=== PATIENT | female | born 1960 | race Caucasian/White ===

== ENCOUNTER 2021-04-02 13:06 | Inpatient (IN) | payer MEDICAID ==
[~2021-04-02] VITALS: Ht 170.2 cm; Wt 102.0 kg
[2021-04-02] VITALS (11 sets, daily range): BP systolic 150–185; BP diastolic 77–108
[2021-04-02] MEDS ORDERED: pantoprazole 40 MG vial IV ONE (13:35)
[2021-04-02] MEDS ORDERED: morphine 4 MG/ML inj SYRINge IV ONE ×2 (13:35→16:10)
[2021-04-02] MEDS ORDERED: normal saline 1000ml 1,000 ML IV ONE (13:40)
[2021-04-02 14:03] LABS: URINE HCG NEGATIVE (NEG)
[2021-04-02 14:06] LABS: BASOPHILS % (AUTO) 0.6 % (0-1); EOSINOPHILS % (AUTO) 0.6 % (0-6); HEMATOCRIT 23.2 % (35.0-45.0); HEMOGLOBIN 7.1 g/dl (12.0-16.0); LYMPHOCYTES # (AUTO) 0.7 X10'3 (1.1-4.8); LYMPHOCYTES % (AUTO) 10.9 % (21-51); MEAN CORPUSCULAR HEMOGLOBIN 20.7 PG (27.0-31.0); MEAN CORPUSCULAR HGB CONC 30.8 g/dL (33.0-36.5); MEAN CORPUSCULAR VOLUME 67.3 FL (78-98); MEAN PLATELET VOLUME 8.4 FL (7.4-10.4); MONOCYTES # (AUTO) 0.3 X10'3 (0-0.9); MONOCYTES % (AUTO) 4.2 % (2-12); NEUTROPHILS # (AUTO) 5.4 X10'3 (1.8-7.7); NEUTROPHILS % (AUTO) 83.7 % (42-75); PLATELET COUNT 130 X10'3 (140-440); RED BLOOD COUNT 3.45 X10'6 (4.20-5.60); RED CELL DISTRIBUTION WIDTH 22.1 % (11.5-14.5); WHITE BLOOD COUNT 6.4 X10'3 (4.5-11.0)
[2021-04-02 14:09] LABS: CLARITY,URINE SLIGHTLY CLOUDY (Clear); COLOR,URINE YELLOW (Yellow); GLUCOSE, URINE NEGATIVE (Neg); KETONES,URINE NEGATIVE (Neg); LEUKOCYTE ESTERASE ,URINE TRACE (Neg); NITRITES, URINE NEGATIVE (Neg); OCCULT BLOOD,URINE NEGATIVE (Neg); PH,URINE 6.5 (4.8-8.0); PROTEIN,URINE NEGATIVE (Neg); UA COLLECTION TYPE CLN CATCH MIDSTREAM; UROBILINOGEN,URINE 0.2 E.U/dL (0.2-1.0)
[2021-04-02 14:18] LABS: ALANINE AMINOTRANSFERASE 25 U/L (12-78); ALBUMIN 3.2 G/DL (3.4-5.0); ALBUMIN/GLOBULIN RATIO 0.9 (1.1-1.5); ALKALINE PHOSPHATASE 94 IU/L (46-116); AMYLASE 29 U/L (25-115); ANION GAP 15 (8-16); ASPARTATE AMINO TRANSFERASE 25 U/L (10-37); BILIRUBIN,TOTAL 1.4 MG/DL (0.1-1.0); BLOOD UREA NITROGEN 18 MG/DL (7-18); BUN/CREATININE RATIO 20.9 (6.6-38.0); CALCIUM 7.8 MG/DL (8.5-10.1); CHLORIDE 104 MMOL/L (99-107); CREATININE 0.86 MG/DL (0.40-0.90); GLUCOSE 141 MG/DL (70-104); LIPASE 54 U/L (73-393); SODIUM 142 MMOL/L (135-145); TOTAL CARBON DIOXIDE 23.3 MMOL/L (24-32); TOTAL PROTEIN 6.6 G/DL (6.4-8.2); eGFR 68 ML/MIN
[2021-04-02 14:19] LABS: PARTIAL THROMBOPLASTIN TIME 21 SECONDS (22-32)
--- NOTE | 2021-04-02 14:21 | NUR ---
Provider (Judy) notified of K 3.0
[2021-04-02 14:24] LABS: BACTERIA,URINE NONE SEEN /HPF (Neg); MUCUS STRANDS FEW /LPF (Neg); RBC,URINE 0-2 /HPF (0-2); SQUAMOUS EPITHELIAL CELL,UR MODERATE /LPF (FEW); WBC,URINE 0-4 /HPF (0-4)
[2021-04-02] MEDS ORDERED: potassium Cl 10 mEq/100mL bag IV ONE (14:35)
[2021-04-02] MEDS ORDERED: iohexol 300mg/ml 100ml inj. ONE (14:44)
[2021-04-02 14:47] LABS: ANISOCYTOSIS 3+; HYPOCHROMASIA 1+; MICROCYTOSIS 2+; PLATELET ESTIMATE DECREASED; POIKILOCYTOSIS FEW
[2021-04-02] MEDS ORDERED: ondansetron/PF 4mg/2ml inj IV ONE (16:10)
[2021-04-02] MEDS ORDERED: octreotide inj. 500 MCG in normal saline 100ml IV soln 100 ML IV SCH (16:45)
--- NOTE | 2021-04-02 16:49 | NUR ---
AWAITING FOR CALL FROM BLOOD BANK REGARDING PRBC.
[2021-04-02] MEDS: pantoprazole 40MG/NS 100ML BAG 100 ML IV SCH (18:15)
[2021-04-02] MEDS ORDERED: magnesium Cl slow-release 64mg tablet PO PRN (18:25)
[2021-04-02] MEDS ORDERED: HYDROcodone/acetaminophen 5mg/325mg tablet PO PRN (18:25)
[2021-04-02] MEDS ORDERED: acetaminophen 325mg tablet PO PRN ×2 (18:25)
[2021-04-02] MEDS ORDERED: haloperidol lactate 5mg/ml inj IM PRN (18:25)
[2021-04-02] MEDS ORDERED: potassium Cl 20 mEq SR tablet PO PRN ×2 (18:25)
[2021-04-02] MEDS ORDERED: mag hydrox/Alum hydrox/simeth 30ml oral suspension PO PRN (18:25)
[2021-04-02] MEDS ORDERED: haloperidol 5mg tablet PO PRN (18:25)
[2021-04-02] MEDS ORDERED: magnesium 2GM in 50ml NS 50 ML IV PRN (18:25)
[2021-04-02] MEDS ORDERED: magnesium hydroxide 30ml (MOM) UD suspension PO PRN (18:25)
[2021-04-02] MEDS ORDERED: magnesium 4gm in 100ml NS 100 ML IV PRN (18:25)
[2021-04-02] MEDS ORDERED: morphine 2 MG/ML inj. syringe IV PRN (18:25)
[2021-04-02] MEDS ORDERED: dextrose 50%-water 50ml dispensing syringe IV PRN (18:25)
[2021-04-02] MEDS ORDERED: thiamine 100mg/ml 2ml inj. IV ONE (18:25)
[2021-04-02] MEDS ORDERED: diphenhydrAMINE 25mg capsule PO PRN (18:25)
[2021-04-02] MEDS ORDERED: potassium Cl 40MEQ/1/2NS 520ml 520 ML IV PRN (18:25)
[2021-04-02] MEDS: dextrose 5%-normal saline 1,000 ML IV SCH ×2 (18:25→22:35)
[2021-04-02] MEDS ORDERED: APIX5TAB3 PO (19:35)
[2021-04-02] MEDS: docusate sod 100mg capsule PO SCH (19:43)
[2021-04-02] MEDS: thiamine 100mg tablet PO SCH ×2 (19:43→19:49)
[2021-04-02] MEDS: K and/or MAG REPLACEMENT MC SCH (19:43)
[2021-04-02 20:42] LABS: HEMOGLOBIN A1C < 3.6 % (4.5-6.2)
[2021-04-02] MEDS: ondansetron/PF 4mg/2ml inj IV PRN (20:53)
[2021-04-02] MEDS: morphine 2 MG/ML inj. syringe IV PRN (22:38)
[2021-04-03 00:15] LABS: HEMATOCRIT 27.4 % (35.0-45.0); HEMOGLOBIN 8.7 g/dl (12.0-16.0); MEAN CORPUSCULAR HEMOGLOBIN 22.7 PG (27.0-31.0); MEAN CORPUSCULAR HGB CONC 31.7 g/dL (33.0-36.5); MEAN CORPUSCULAR VOLUME 71.7 FL (78-98); MEAN PLATELET VOLUME 8.3 FL (7.4-10.4); PLATELET COUNT 98 X10'3 (140-440); RED BLOOD COUNT 3.82 X10'6 (4.20-5.60); RED CELL DISTRIBUTION WIDTH 24.6 % (11.5-14.5); WHITE BLOOD COUNT 5.7 X10'3 (4.5-11.0)
[2021-04-03] MEDS: pantoprazole 40MG/NS 100ML BAG 100 ML IV SCH ×5 (00:28→17:26)
[2021-04-03] MEDS: potassium Cl 40MEQ/1/2NS 520ml 520 ML IV PRN ×2 (00:37→05:49)
[2021-04-03] MEDS: LORazepam 2 mg/ml vial IV PRN ×6 (00:42→21:30)
--- NOTE | 2021-04-03 00:51 | NUR ---
pt c/o paliptation. hr 85. noticd pt has tremors in hand and pt states is having visual halluciantions. pt states drinks 1/2 a fifth daily and last drink yesterday. 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 medicated pt with ativan and will monitor ciwa score .
[2021-04-03] MEDS: morphine 2 MG/ML inj. syringe IV PRN ×3 (03:08→22:05)
[2021-04-03] MEDS: dextrose 5%-normal saline 1,000 ML IV SCH ×4 (04:25→23:16)
--- NOTE | 2021-04-03 06:33 | NUR ---
ASSUMED CARE. PT SHOWS NO S/S OF ACUTE DISTRESS. PT RESTING ON 3 LTR O2. BED LOCKED AND LOW. CALL LIGHT IN REACH.
[2021-04-03] MEDS: K and/or MAG REPLACEMENT MC SCH ×2 (08:00→20:00)
--- NOTE | 2021-04-03 08:04 | NUR ---
SPOKE W/ DR. BOOTHE REGARDING PO MED INTAKE. STATED EGD WILL BE BE PERFORMED LATE MORNING AND IS OKAY FOR ALL PO MEDS TO BE ADMINISTERED.
[2021-04-03] MEDS: ondansetron/PF 4mg/2ml inj IV PRN ×2 (08:33→17:17)
[2021-04-03] MEDS: multivitamins, therapeutics tablet PO SCH (08:34)
[2021-04-03] MEDS: thiamine 100mg tablet PO SCH (08:34)
[2021-04-03] MEDS: folic acid 1mg tablet PO SCH (08:34)
[2021-04-03] MEDS: docusate sod 100mg capsule PO SCH ×2 (08:34→20:00)
[2021-04-03] MEDS ORDERED: hydrALAZINE 20mg/ml inj. IV PRN (09:40)
[2021-04-03 09:41] LABS: BASOPHILS % (AUTO) 0.4 % (0-1); EOSINOPHILS # (AUTO) 0.2 X10'3 (0-0.9); EOSINOPHILS % (AUTO) 3.9 % (0-6); HEMATOCRIT 26.1 % (35.0-45.0); HEMOGLOBIN 8.2 g/dl (12.0-16.0); LYMPHOCYTES % (AUTO) 21.5 % (21-51); MEAN CORPUSCULAR HEMOGLOBIN 22.6 PG (27.0-31.0); MEAN CORPUSCULAR HGB CONC 31.3 g/dL (33.0-36.5); MEAN CORPUSCULAR VOLUME 72.2 FL (78-98); MEAN PLATELET VOLUME 8.3 FL (7.4-10.4); MONOCYTES # (AUTO) 0.2 X10'3 (0-0.9); NEUTROPHILS # (AUTO) 3.2 X10'3 (1.8-7.7); NEUTROPHILS % (AUTO) 70.2 % (42-75); PLATELET COUNT 86 X10'3 (140-440); RED BLOOD COUNT 3.62 X10'6 (4.20-5.60); WHITE BLOOD COUNT 4.6 X10'3 (4.5-11.0)
[2021-04-03 09:50] LABS: ALANINE AMINOTRANSFERASE 28 U/L (12-78); ALBUMIN 2.8 G/DL (3.4-5.0); ALKALINE PHOSPHATASE 78 IU/L (46-116); AMYLASE 23 U/L (25-115); ANION GAP 6 (8-16); ASPARTATE AMINO TRANSFERASE 47 U/L (10-37); BLOOD UREA NITROGEN 13 MG/DL (7-18); BUN/CREATININE RATIO 18.1 (6.6-38.0); CALCIUM 7.8 MG/DL (8.5-10.1); CHLORIDE 112 MMOL/L (99-107); CHOL/HDL RATIO 3.2 (0.00-4.99); CHOLESTEROL 142 MG/DL (0-200); CREATININE 0.72 MG/DL (0.40-0.90); GLUCOSE 139 MG/DL (70-104); HDL CHOLESTEROL 45 MG/DL (35-60); LDL CHOLESTEROL 77 MG/DL (50-100); MAGNESIUM 1.6 MG/DL (1.5-2.4); PHOSPHORUS 2.3 MG/DL (2.3-4.5); POTASSIUM 4.2 MMOL/L (3.5-5.1); SODIUM 142 MMOL/L (135-145); TOTAL CARBON DIOXIDE 24.3 MMOL/L (24-32); TOTAL PROTEIN 5.7 G/DL (6.4-8.2); TRIGLYCERIDES 129 MG/DL (20-135); eGFR 83 ML/MIN
[2021-04-03 10:29] LABS: PLATELET ESTIMATE DECREASED
[2021-04-03 10:30] LABS: ANISOCYTOSIS 3+; ELLIPTOCYTES 1+; HYPOCHROMASIA 1+; MICROCYTOSIS 1+; POLYCHROMASIA 1+; TEAR DROP CELLS FEW
[2021-04-03] MEDS: pantoprazole 40 MG vial IV SCH (10:40)
[2021-04-03] MEDS: octreotide inj. 500 MCG in normal saline 100ml IV soln 97.5 ML IV SCH (11:32)
[2021-04-03 13:05] LABS: HEMATOCRIT 25.2 % (35.0-45.0); HEMOGLOBIN 7.8 g/dl (12.0-16.0); MEAN CORPUSCULAR HEMOGLOBIN 22.7 PG (27.0-31.0); MEAN CORPUSCULAR VOLUME 73.1 FL (78-98); MEAN PLATELET VOLUME 8.5 FL (7.4-10.4); PLATELET COUNT 84 X10'3 (140-440); RED BLOOD COUNT 3.45 X10'6 (4.20-5.60); WHITE BLOOD COUNT 4.9 X10'3 (4.5-11.0)
[2021-04-03 22:00] VITALS: BP 154/82
[2021-04-04] VITALS (16 sets, daily range): BP systolic 91–158; BP diastolic 35–95
[2021-04-04] MEDS: pantoprazole 40MG/NS 100ML BAG 100 ML IV SCH ×4 (00:05→12:00)
[2021-04-04] MEDS: LORazepam 2 mg/ml vial IV PRN ×6 (00:24→16:58)
[2021-04-04] MEDS: ondansetron/PF 4mg/2ml inj IV PRN ×2 (01:18→08:34)
[2021-04-04] MEDS: morphine 2 MG/ML inj. syringe IV PRN ×2 (01:49→08:17)
--- NOTE | 2021-04-04 06:26 | NUR ---
Problems reprioritized. Patient report given, questions answered & plan of care reviewed with MAT Huber.
[2021-04-04 06:28] LABS: BASOPHILS % (AUTO) 0.7 % (0-1); EOSINOPHILS # (AUTO) 0.2 X10'3 (0-0.9); EOSINOPHILS % (AUTO) 3.7 % (0-6); HEMOGLOBIN 7.5 g/dl (12.0-16.0); LYMPHOCYTES # (AUTO) 1.2 X10'3 (1.1-4.8); LYMPHOCYTES % (AUTO) 24.1 % (21-51); MEAN CORPUSCULAR HEMOGLOBIN 23.2 PG (27.0-31.0); MEAN CORPUSCULAR HGB CONC 31.5 g/dL (33.0-36.5); MEAN CORPUSCULAR VOLUME 73.7 FL (78-98); MEAN PLATELET VOLUME 8.2 FL (7.4-10.4); MONOCYTES # (AUTO) 0.2 X10'3 (0-0.9); MONOCYTES % (AUTO) 4.3 % (2-12); NEUTROPHILS # (AUTO) 3.4 X10'3 (1.8-7.7); NEUTROPHILS % (AUTO) 67.2 % (42-75); PLATELET COUNT 94 X10'3 (140-440); RED BLOOD COUNT 3.26 X10'6 (4.20-5.60); RED CELL DISTRIBUTION WIDTH 23.8 % (11.5-14.5)
[2021-04-04 06:50] LABS: ALANINE AMINOTRANSFERASE 59 U/L (12-78); ALBUMIN 2.5 G/DL (3.4-5.0); ALBUMIN/GLOBULIN RATIO 0.9 (1.1-1.5); ALKALINE PHOSPHATASE 73 IU/L (46-116); AMYLASE 28 U/L (25-115); ANION GAP 7 (8-16); ASPARTATE AMINO TRANSFERASE 112 U/L (10-37); BILIRUBIN,TOTAL 0.6 MG/DL (0.1-1.0); BLOOD UREA NITROGEN 8 MG/DL (7-18); BUN/CREATININE RATIO 10.8 (6.6-38.0); CALCIUM 7.7 MG/DL (8.5-10.1); CHLORIDE 111 MMOL/L (99-107); CREATININE 0.74 MG/DL (0.40-0.90); GLUCOSE 135 MG/DL (70-104); MAGNESIUM 1.6 MG/DL (1.5-2.4); PHOSPHORUS 2.6 MG/DL (2.3-4.5); POTASSIUM 3.6 MMOL/L (3.5-5.1); SODIUM 142 MMOL/L (135-145); TOTAL CARBON DIOXIDE 24.5 MMOL/L (24-32); TOTAL PROTEIN 5.4 G/DL (6.4-8.2); eGFR 81 ML/MIN
--- NOTE | 2021-04-04 07:48 | NUR ---
Patient in room PCU 3028. I have received report from DAYTON RIVERO and had the opportunity to ask questions and assume patient care.
[2021-04-04] MEDS: K and/or MAG REPLACEMENT MC SCH ×2 (08:00→22:00)
[2021-04-04] MEDS: docusate sod 100mg capsule PO SCH ×2 (08:00→20:49)
[2021-04-04] MEDS: pantoprazole 40 MG vial IV SCH (08:21)
[2021-04-04] MEDS: multivitamins, therapeutics tablet PO SCH (08:22)
[2021-04-04] MEDS: thiamine 100mg tablet PO SCH (08:22)
[2021-04-04] MEDS: folic acid 1mg tablet PO SCH (08:34)
--- NOTE | 2021-04-04 09:29 | NUR ---
Page to Glendy PAGER ID: [phone] MESSAGE: Pt Cynthia Morillo [id number] is having no relief from Zofran. May we try Compazine? Pls advise, Lindsey MCKEON [phone]
[2021-04-04] MEDS: octreotide inj. 500 MCG in normal saline 100ml IV soln 97.5 ML IV SCH (09:50)
[2021-04-04] MEDS ORDERED: pneumococcal 23-VAL P-sac vacc 25 mcg/0.5ml vial IMVAC ONE (10:00)
[2021-04-04] MEDS ORDERED: FLU VACC QS2021-22(6MOS UP)/PF 60 MCG/0.5 ML SYRINGE IM ONE (10:00)
[2021-04-04 10:59] LABS: MEAN CORPUSCULAR HEMOGLOBIN 23.2 PG (27.0-31.0); MEAN CORPUSCULAR HGB CONC 31.1 g/dL (33.0-36.5); MEAN CORPUSCULAR VOLUME 74.7 FL (78-98); MEAN PLATELET VOLUME 8.3 FL (7.4-10.4); PLATELET COUNT 112 X10'3 (140-440); RED BLOOD COUNT 2.74 X10'6 (4.20-5.60); RED CELL DISTRIBUTION WIDTH 24.5 % (11.5-14.5); WHITE BLOOD COUNT 5.8 X10'3 (4.5-11.0)
[2021-04-04 11:07] LABS: HEMATOCRIT 20.4 % (35.0-45.0); HEMOGLOBIN 6.4 g/dl (12.0-16.0)
--- NOTE | 2021-04-04 12:23 | NUR ---
Pt BP 92/44, pale, lethargic, bolusing 250cc per protocol, 1 unit PRBC in route
[2021-04-04] MEDS ORDERED: LIDOcaine Viscous 15ml cup ONE (13:00)
[2021-04-04] MEDS ORDERED: fentaNYL/PF 50MCG/1 ML 2ML syringe ONE ×3 (13:00→14:33)
[2021-04-04] MEDS ORDERED: MIDAZolam 1 MG/ML 5ML VIAL ONE (13:00)
[2021-04-04] MEDS ORDERED: epiNEPHrine 0.1mg/ml 10ml syringe ONE (14:15)
[2021-04-04] MEDS ORDERED: diphenhydrAMINE 50 mg/ml inj ONE (14:33)
[2021-04-04 15:25] LABS: OCCULT BLOOD STOOL POSITIVE (Neg)
--- NOTE | 2021-04-04 16:01 | NUR ---
page to gabe PAGER ID: [phone] MESSAGE: Pt Cynthia Morillo got her EGD and they cauterized d a duodenal ulcer. Can I start her on clears please for dinner? pls advise, Lindsey MCKEON [phone]
[2021-04-04 16:43] LABS: MEAN CORPUSCULAR HEMOGLOBIN 24.6 PG (27.0-31.0); MEAN CORPUSCULAR HGB CONC 31.5 g/dL (33.0-36.5); MEAN PLATELET VOLUME 7.6 FL (7.4-10.4); PLATELET COUNT 98 X10'3 (140-440); RED BLOOD COUNT 2.83 X10'6 (4.20-5.60); RED CELL DISTRIBUTION WIDTH 25.3 % (11.5-14.5); WHITE BLOOD COUNT 6.2 X10'3 (4.5-11.0)
[2021-04-04 16:52] LABS: HEMOGLOBIN 6.9 g/dl (12.0-16.0)
[2021-04-04] MEDS: proCHLORperazine 10 MG/2 ml inj IV PRN (17:01)
--- NOTE | 2021-04-04 17:27 | NUR ---
Orientee documentation: I have reviewed and agree with all interventions, assessments performed and documented by Cecile RIVERO.
--- NOTE | 2021-04-04 18:12 | NUR ---
Problems reprioritized. Patient report given, questions answered & plan of care reviewed with Yecenia RIVERO.
[2021-04-04] MEDS ORDERED: LORazepam 2 mg/ml vial IV PRN (18:25)
--- NOTE | 2021-04-04 20:00 | NUR ---
Pt request vaccines not to be at this time because she wants to sleep. She will revisit it before discharge
[2021-04-04] MEDS: LORazepam 1 MG tablet PO PRN (21:09)
[2021-04-04] MEDS: HYDROcodone/acetaminophen 10/325mg tab PO PRN (21:12)
--- NOTE | 2021-04-04 21:30 | NUR ---
Unable to draw lab for CBC; Dr Motta notified. Will draw with AM lab
[2021-04-05] VITALS (14 sets, daily range): BP systolic 108–165; BP diastolic 48–85
[2021-04-05] MEDS: HYDROcodone/acetaminophen 10/325mg tab PO PRN ×5 (01:15→20:43)
[2021-04-05] MEDS: LORazepam 1 MG tablet PO PRN ×9 (01:16→22:55)
[2021-04-05] MEDS: normal saline 1000ml 1,000 ML IV SCH ×4 (01:18→17:30)
--- NOTE | 2021-04-05 01:37 | NUR ---
hourly rounding in progress, fall precaution in progress, Call light and bedside commode placed within reach. Continue to monitor pt for withdraw.
--- NOTE | 2021-04-05 05:20 | NUR ---
Pt had a good night sleep;. IV fluid infusing well with no complication. Medicated for pain and anxiety as needed. Continue to monitor pt for active bleeding
[2021-04-05 05:58] LABS: BASOPHILS % (AUTO) 0.4 % (0-1); EOSINOPHILS # (AUTO) 0.1 X10'3 (0-0.9); LYMPHOCYTES # (AUTO) 1.1 X10'3 (1.1-4.8); LYMPHOCYTES % (AUTO) 22.2 % (21-51); MEAN CORPUSCULAR HEMOGLOBIN 24.9 PG (27.0-31.0); MEAN CORPUSCULAR HGB CONC 31.8 g/dL (33.0-36.5); MEAN CORPUSCULAR VOLUME 78.5 FL (78-98); MEAN PLATELET VOLUME 7.3 FL (7.4-10.4); MONOCYTES # (AUTO) 0.3 X10'3 (0-0.9); MONOCYTES % (AUTO) 5.2 % (2-12); NEUTROPHILS # (AUTO) 3.5 X10'3 (1.8-7.7); NEUTROPHILS % (AUTO) 69.2 % (42-75); PLATELET COUNT 97 X10'3 (140-440); RED BLOOD COUNT 2.42 X10'6 (4.20-5.60); RED CELL DISTRIBUTION WIDTH 24.6 % (11.5-14.5)
[2021-04-05 06:15] LABS: ALANINE AMINOTRANSFERASE 53 U/L (12-78); ALBUMIN 2.1 G/DL (3.4-5.0); ALBUMIN/GLOBULIN RATIO 0.9 (1.1-1.5); ALKALINE PHOSPHATASE 57 IU/L (46-116); AMYLASE 41 U/L (25-115); ANION GAP 7 (8-16); ASPARTATE AMINO TRANSFERASE 58 U/L (10-37); BILIRUBIN,TOTAL 0.5 MG/DL (0.1-1.0); BLOOD UREA NITROGEN 11 MG/DL (7-18); BUN/CREATININE RATIO 16.7 (6.6-38.0); CALCIUM 7.3 MG/DL (8.5-10.1); CHLORIDE 114 MMOL/L (99-107); CREATININE 0.66 MG/DL (0.40-0.90); GLUCOSE 93 MG/DL (70-104); MAGNESIUM 1.6 MG/DL (1.5-2.4); PHOSPHORUS 3.8 MG/DL (2.3-4.5); POTASSIUM 4.1 MMOL/L (3.5-5.1); SODIUM 147 MMOL/L (135-145); TOTAL CARBON DIOXIDE 25.6 MMOL/L (24-32); TOTAL PROTEIN 4.5 G/DL (6.4-8.2); eGFR > 90 ML/MIN
--- NOTE | 2021-04-05 06:32 | NUR ---
Patient labs came in critical HGB 6.0, HCT 19. Dr Webber notified. No transfusion ordered at this time. Will follow up with day hospitalist.
--- NOTE | 2021-04-05 07:11 | NUR ---
PAGER ID: [phone] MESSAGE: Cynthia Morillo [id number] Critical results HGB 6.0 Hct 19. Night nurse witnessed two episodes of bright red blood in stool. Would you like us to transfuse ? Please advise. Cecile RIVERO PCUext. [phone]
[2021-04-05 07:12] LABS: ANISOCYTOSIS 3+; ELLIPTOCYTES 1+; MICROCYTOSIS 1+; PLATELET ESTIMATE DECREASED; POLYCHROMASIA 1+
[2021-04-05] MEDS: thiamine 100mg tablet PO SCH (07:35)
[2021-04-05] MEDS: folic acid 1mg tablet PO SCH (07:35)
[2021-04-05] MEDS: multivitamins, therapeutics tablet PO SCH (07:35)
[2021-04-05] MEDS: morphine 2 MG/ML inj. syringe IV PRN ×4 (07:41→22:50)
[2021-04-05] MEDS: docusate sod 100mg capsule PO SCH ×2 (08:00→20:43)
[2021-04-05] MEDS: K and/or MAG REPLACEMENT MC SCH ×2 (08:00→20:00)
--- NOTE | 2021-04-05 08:18 | NUR ---
PAGER ID: [phone] MESSAGE: Cynthia Morillo [id number] PCU is reporting 3/10 chest pain ordered stat EKG, will take to ER doc to read and beginning transfusion now. Thank you, Cecile RIVERO PCU ext [phone] (165 character message out of a maximum of [phone])
--- NOTE | 2021-04-05 09:10 | NUR ---
PAGER ID: [phone] MESSAGE: Cynthia Morillo troponin came back 0.06. Thank you, Cecile RIVERO PCU ext [phone]
[2021-04-05] MEDS ORDERED: pneumococcal 23-VAL P-sac vacc 25 mcg/0.5ml vial IMVAC ONE (10:00)
[2021-04-05] MEDS ORDERED: FLU VACC QS2021-22(6MOS UP)/PF 60 MCG/0.5 ML SYRINGE IM ONE (10:00)
--- NOTE | 2021-04-05 10:48 | NUR ---
Met with patient in regards to alcohol use. Patient is interested in going to rehab after being discharged from hospital. I will follow up with patient while she is here and help assist her with treatment.
[2021-04-05] MEDS ORDERED: dextrose ORAL solution 15 GM/59 ML bottle PO PRN (11:20)
[2021-04-05] MEDS ORDERED: dextrose 50%-water 50ml dispensing syringe IV PRN (11:20)
[2021-04-05] MEDS ORDERED: glucagon, human recombinant 1mg kit SUBCUT PRN (11:20)
[2021-04-05 12:28] LABS: MEAN CORPUSCULAR HEMOGLOBIN 25.6 PG (27.0-31.0); MEAN CORPUSCULAR VOLUME 80.2 FL (78-98); MEAN PLATELET VOLUME 7.2 FL (7.4-10.4); PLATELET COUNT 88 X10'3 (140-440); RED BLOOD COUNT 2.66 X10'6 (4.20-5.60); RED CELL DISTRIBUTION WIDTH 24.1 % (11.5-14.5); WHITE BLOOD COUNT 3.9 X10'3 (4.5-11.0)
[2021-04-05 12:34] LABS: HEMOGLOBIN 6.8 g/dl (12.0-16.0)
[2021-04-05 12:35] LABS: HEMATOCRIT 21.3 % (35.0-45.0)
--- NOTE | 2021-04-05 12:37 | NUR ---
PAGER ID: [phone] MESSAGE: Benson Whyte [phone] is agitated and reported he was getting discharged this morning. What time is he getting discharged? Thank you, Cecile doan [phone]
[2021-04-05] MEDS: proCHLORperazine 10 MG/2 ml inj IV PRN (13:08)
[2021-04-05] MEDS: ondansetron/PF 4mg/2ml inj IV PRN ×2 (16:34→22:50)
--- NOTE | 2021-04-05 17:17 | NUR ---
PAGER ID: [phone] MESSAGE: Delmar Morillo [id number] is still NPO until you say otherwise. No bloody stool events since this morning, but abdominal pain persists. Thank you, Lindsey MCKEON [phone]
--- NOTE | 2021-04-05 18:22 | NUR ---
Problems reprioritized. Patient report given, questions answered & plan of care reviewed with Yecenia RIVERO.
[2021-04-05 18:43] LABS: HEMATOCRIT 26.1 % (35.0-45.0); HEMOGLOBIN 8.3 g/dl (12.0-16.0); MEAN CORPUSCULAR HEMOGLOBIN 25.5 PG (27.0-31.0); MEAN CORPUSCULAR HGB CONC 31.7 g/dL (33.0-36.5); MEAN CORPUSCULAR VOLUME 80.4 FL (78-98); MEAN PLATELET VOLUME 8.2 FL (7.4-10.4); PLATELET COUNT 100 X10'3 (140-440); RED BLOOD COUNT 3.25 X10'6 (4.20-5.60); RED CELL DISTRIBUTION WIDTH 23.2 % (11.5-14.5); WHITE BLOOD COUNT 4.2 X10'3 (4.5-11.0)
[2021-04-05] MEDS: pantoprazole 40 MG vial IV SCH (20:42)
[2021-04-05] MEDS: insulin glargine (Lantus) pen - multi-dose SQ SCH (21:00)
--- NOTE | 2021-04-05 23:05 | NUR ---
Pt vomited while complaining of pain; Med given as ordered.
[2021-04-06] VITALS (14 sets, daily range): BP systolic 106–168; BP diastolic 66–87
[2021-04-06] MEDS: LORazepam 1 MG tablet PO PRN ×10 (00:42→23:09)
[2021-04-06] MEDS: HYDROcodone/acetaminophen 10/325mg tab PO PRN ×5 (00:43→23:10)
[2021-04-06] MEDS: normal saline 1000ml 1,000 ML IV SCH ×3 (00:51→19:11)
[2021-04-06 01:44] LABS: HEMOGLOBIN 7.7 g/dl (12.0-16.0); MEAN CORPUSCULAR HEMOGLOBIN 25.8 PG (27.0-31.0); MEAN CORPUSCULAR HGB CONC 31.8 g/dL (33.0-36.5); MEAN CORPUSCULAR VOLUME 80.9 FL (78-98); MEAN PLATELET VOLUME 8.2 FL (7.4-10.4); PLATELET COUNT 97 X10'3 (140-440); RED BLOOD COUNT 2.97 X10'6 (4.20-5.60); RED CELL DISTRIBUTION WIDTH 23.9 % (11.5-14.5)
--- NOTE | 2021-04-06 02:00 | NUR ---
Pt refused blood sugar and reported that she feels fine.
[2021-04-06] MEDS: morphine 2 MG/ML inj. syringe IV PRN ×5 (03:05→21:43)
--- NOTE | 2021-04-06 06:00 | NUR ---
Pt voided urine is cleas
--- NOTE | 2021-04-06 06:34 | NUR ---
Patient in room PCU 3028. I have received report from MAT MCWILLIAMS, and had the opportunity to ask questions and assume patient care.
--- NOTE | 2021-04-06 06:54 | NUR ---
Pt notified that she is NPO for possible procedure and to left staff tahmina her bloor sugar for sigs of hypoglycemia. Pt ok for blood sugar to be drawn later.
[2021-04-06 07:16] LABS: BASOPHILS % (AUTO) 0.3 % (0-1); EOSINOPHILS # (AUTO) 0.1 X10'3 (0-0.9); EOSINOPHILS % (AUTO) 3.8 % (0-6); LYMPHOCYTES # (AUTO) 0.6 X10'3 (1.1-4.8); LYMPHOCYTES % (AUTO) 20.8 % (21-51); MEAN CORPUSCULAR HEMOGLOBIN 25.9 PG (27.0-31.0); MEAN CORPUSCULAR HGB CONC 32.2 g/dL (33.0-36.5); MEAN CORPUSCULAR VOLUME 80.3 FL (78-98); MEAN PLATELET VOLUME 7.3 FL (7.4-10.4); MONOCYTES # (AUTO) 0.3 X10'3 (0-0.9); MONOCYTES % (AUTO) 10.1 % (2-12); PLATELET COUNT 98 X10'3 (140-440); RED BLOOD COUNT 2.59 X10'6 (4.20-5.60); RED CELL DISTRIBUTION WIDTH 23.7 % (11.5-14.5); WHITE BLOOD COUNT 3.1 X10'3 (4.5-11.0)
[2021-04-06 07:31] LABS: HEMATOCRIT 20.8 % (35.0-45.0); HEMOGLOBIN 6.7 g/dl (12.0-16.0)
--- NOTE | 2021-04-06 07:34 | NUR ---
PAGE SENT PAGER ID: [phone] MESSAGE: [id number], MANINDER EDMONDS, HGB - 6.7, HCT - 20.8. NEEDS NEW TYPE AND SCREEN. THANK YOU, OSITO
[2021-04-06 07:48] LABS: ALANINE AMINOTRANSFERASE 48 U/L (12-78); ALBUMIN 2.1 G/DL (3.4-5.0); ALBUMIN/GLOBULIN RATIO 0.9 (1.1-1.5); ALKALINE PHOSPHATASE 54 IU/L (46-116); ANION GAP 8 (8-16); ASPARTATE AMINO TRANSFERASE 40 U/L (10-37); BILIRUBIN,TOTAL 0.6 MG/DL (0.1-1.0); BLOOD UREA NITROGEN 12 MG/DL (7-18); CALCIUM 7.3 MG/DL (8.5-10.1); CHLORIDE 111 MMOL/L (99-107); CREATININE 0.63 MG/DL (0.40-0.90); GLUCOSE 82 MG/DL (70-104); MAGNESIUM 1.6 MG/DL (1.5-2.4); PHOSPHORUS 4.3 MG/DL (2.3-4.5); POTASSIUM 3.3 MMOL/L (3.5-5.1); SODIUM 143 MMOL/L (135-145); TOTAL CARBON DIOXIDE 23.6 MMOL/L (24-32); TOTAL PROTEIN 4.5 G/DL (6.4-8.2); eGFR > 90 ML/MIN
[2021-04-06] MEDS: thiamine 100mg tablet PO SCH (08:01)
[2021-04-06] MEDS: multivitamins, therapeutics tablet PO SCH (08:01)
[2021-04-06] MEDS: folic acid 1mg tablet PO SCH (08:01)
[2021-04-06] MEDS: pantoprazole 40 MG vial IV SCH (08:01)
[2021-04-06 09:42] LABS: PLATELET ESTIMATE DECREASED
[2021-04-06 09:43] LABS: ANISOCYTOSIS 3+; ELLIPTOCYTES 1+; POLYCHROMASIA 1+; SCHISTOCYTES 2+
[2021-04-06 09:44] LABS: ROULEAUX 1+
--- NOTE | 2021-04-06 15:02 | NUR ---
Initial: Pt admitted w/ abd pain and bloody stools per EMR. Pt continued to have bloody stools w/ LBM 04/05. Pt placed on Clear liquid diet 04/04 w/ 45% intake x3 meals, though is NPO now for possible procedure per nursing note. Limited nutrition interventions at this time given diet order. Will continue to monitor for diet advancement and make recommendations as appropriate. Recs: 1. Advance diet as tolerated to Regular per MD 2. Bowel care per rx 3. Weekly wts Addendum: 04/06/21 at [address] Amended: Links added.
[2021-04-06] MEDS ORDERED: MIDAZolam 1 MG/ML 5ML VIAL ONE (17:08)
[2021-04-06] MEDS ORDERED: LIDOcaine Viscous 15ml cup ONE (17:08)
[2021-04-06] MEDS ORDERED: fentaNYL/PF 50MCG/1 ML 2ML syringe ONE (17:08)
[2021-04-06 17:23] LABS: HEMATOCRIT 28.5 % (35.0-45.0); HEMOGLOBIN 9.2 g/dl (12.0-16.0); MEAN CORPUSCULAR HGB CONC 32.3 g/dL (33.0-36.5); MEAN CORPUSCULAR VOLUME 83.8 FL (78-98); MEAN PLATELET VOLUME 7.2 FL (7.4-10.4); PLATELET COUNT 116 X10'3 (140-440); RED CELL DISTRIBUTION WIDTH 23.8 % (11.5-14.5); WHITE BLOOD COUNT 4.4 X10'3 (4.5-11.0)
[2021-04-06] MEDS ORDERED: LORazepam 2 mg/ml vial IV PRN (18:25)
--- NOTE | 2021-04-06 18:29 | NUR ---
2 UNITS OF PRBC'S WERE ADMINISTERED TO THE PT TODAY. VS TAKEN BEFORE, 15 MINS, 1 HOUR AND POST TRANSFUSION X2.
--- NOTE | 2021-04-06 18:30 | NUR ---
Problems reprioritized. Patient report given, questions answered & plan of care reviewed with MAT MCWILLIAMS.
--- NOTE | 2021-04-06 18:38 | NUR ---
PT HAD SEVERAL BLOODY STOOLS NOTED IN I&O'S, MEASURED ACCURATELY POSSIBLE AROUND WIPES.
[2021-04-06] MEDS: ondansetron/PF 4mg/2ml inj IV PRN (18:52)
[2021-04-06] MEDS: pantoprazole 40MG/NS 100ML BAG 100 ML IV SCH ×2 (18:58→23:10)
[2021-04-06] MEDS: K and/or MAG REPLACEMENT MC SCH (20:00)
[2021-04-06] MEDS: docusate sod 100mg capsule PO SCH (20:00)
[2021-04-06] MEDS: insulin glargine (Lantus) pen - multi-dose SQ SCH (21:00)
[2021-04-06 21:01] LABS: HEMOGLOBIN 9.4 g/dl (12.0-16.0); MEAN CORPUSCULAR HGB CONC 32.6 g/dL (33.0-36.5); MEAN CORPUSCULAR VOLUME 82.8 FL (78-98); MEAN PLATELET VOLUME 7.2 FL (7.4-10.4); PLATELET COUNT 126 X10'3 (140-440); RED CELL DISTRIBUTION WIDTH 24.2 % (11.5-14.5); WHITE BLOOD COUNT 4.2 X10'3 (4.5-11.0)
[2021-04-06] MEDS ORDERED: potassium Cl 40MEQ/1/2NS 520ml 520 ML IV ONE (21:50)
--- NOTE | 2021-04-06 23:00 | NUR ---
Pt continue to complaints of pain to her abdomen and mid chest. Pt denied any numbness and tingling BP 145/77 RR 18 HR 99. saturating well on room air. Continue to monitor pt.
[2021-04-06] MEDS: proCHLORperazine 10 MG/2 ml inj IV PRN (23:09)
[2021-04-07] VITALS (13 sets, daily range): BP systolic 129–158; BP diastolic 41–90
[2021-04-07] MEDS: LORazepam 1 MG tablet PO PRN ×2 (01:13→03:43)
[2021-04-07] MEDS: morphine 2 MG/ML inj. syringe IV PRN ×4 (01:14→20:12)
--- NOTE | 2021-04-07 02:00 | NUR ---
Pt refused blood sugar and blood draw at this time.
[2021-04-07 02:29] LABS: ALANINE AMINOTRANSFERASE 50 U/L (12-78); ALBUMIN 2.3 G/DL (3.4-5.0); ALBUMIN/GLOBULIN RATIO 0.7 (1.1-1.5); ALKALINE PHOSPHATASE 62 IU/L (46-116); ANION GAP 7 (8-16); ASPARTATE AMINO TRANSFERASE 38 U/L (10-37); BILIRUBIN,TOTAL 0.7 MG/DL (0.1-1.0); BLOOD UREA NITROGEN 12 MG/DL (7-18); BUN/CREATININE RATIO 16.9 (6.6-38.0); CALCIUM 7.7 MG/DL (8.5-10.1); CHLORIDE 110 MMOL/L (99-107); CREATININE 0.71 MG/DL (0.40-0.90); GLUCOSE 87 MG/DL (70-104); MAGNESIUM 1.6 MG/DL (1.5-2.4); PHOSPHORUS 3.7 MG/DL (2.3-4.5); POTASSIUM 3.7 MMOL/L (3.5-5.1); SODIUM 142 MMOL/L (135-145); TOTAL CARBON DIOXIDE 24.9 MMOL/L (24-32); TOTAL PROTEIN 5.5 G/DL (6.4-8.2); eGFR 85 ML/MIN
[2021-04-07] MEDS: HYDROcodone/acetaminophen 10/325mg tab PO PRN ×3 (03:44→17:51)
[2021-04-07] MEDS: pantoprazole 40MG/NS 100ML BAG 100 ML IV SCH ×5 (05:33→21:15)
[2021-04-07] MEDS: ondansetron/PF 4mg/2ml inj IV PRN (05:33)
[2021-04-07 06:24] LABS: BASOPHILS % (AUTO) 0.4 % (0-1); EOSINOPHILS # (AUTO) 0.1 X10'3 (0-0.9); EOSINOPHILS % (AUTO) 3.3 % (0-6); HEMATOCRIT 24.2 % (35.0-45.0); HEMOGLOBIN 7.9 g/dl (12.0-16.0); LYMPHOCYTES # (AUTO) 0.6 X10'3 (1.1-4.8); LYMPHOCYTES % (AUTO) 18.7 % (21-51); MEAN CORPUSCULAR HGB CONC 32.6 g/dL (33.0-36.5); MEAN CORPUSCULAR VOLUME 82.8 FL (78-98); MEAN PLATELET VOLUME 7.2 FL (7.4-10.4); MONOCYTES # (AUTO) 0.4 X10'3 (0-0.9); MONOCYTES % (AUTO) 11.3 % (2-12); NEUTROPHILS # (AUTO) 2.1 X10'3 (1.8-7.7); NEUTROPHILS % (AUTO) 66.3 % (42-75); PLATELET COUNT 122 X10'3 (140-440); RED BLOOD COUNT 2.92 X10'6 (4.20-5.60); RED CELL DISTRIBUTION WIDTH 24.4 % (11.5-14.5); WHITE BLOOD COUNT 3.2 X10'3 (4.5-11.0)
--- NOTE | 2021-04-07 07:00 | NUR ---
Patient in room PCU 3028. I have received report from Yecenia RIVERO and had the opportunity to ask questions and assume patient care. Pt alert to voice, readily verbalizing needs. endorses pain; nurse led pt in deep breathing and non pharmacological interventions to pain and anxiety (note: pt received morphine less than 30 mins ago. will continue to monitor for effectiveness) safety education completed. safety measures in place. no s/sx acute distress.
[2021-04-07] MEDS: normal saline 1000ml 1,000 ML IV SCH ×2 (07:02→21:21)
[2021-04-07] MEDS: docusate sod 100mg capsule PO SCH ×2 (08:00→20:00)
[2021-04-07] MEDS: K and/or MAG REPLACEMENT MC SCH ×2 (08:00→20:00)
[2021-04-07] MEDS: multivitamins, therapeutics tablet PO SCH (09:08)
[2021-04-07] MEDS: folic acid 1mg tablet PO SCH (09:09)
[2021-04-07] MEDS: thiamine 100mg tablet PO SCH (09:10)
[2021-04-07 09:41] LABS: ANISOCYTOSIS 3+; ELLIPTOCYTES 1+; PLATELET ESTIMATE DECREASED; POLYCHROMASIA 1+
[2021-04-07] MEDS ORDERED: morphine 2 MG/ML inj. syringe IV PRN (10:50)
[2021-04-07 12:36] LABS: HEMATOCRIT 25.2 % (35.0-45.0); HEMOGLOBIN 8.1 g/dl (12.0-16.0); MEAN CORPUSCULAR HGB CONC 32.2 g/dL (33.0-36.5); MEAN CORPUSCULAR VOLUME 83.7 FL (78-98); MEAN PLATELET VOLUME 7.3 FL (7.4-10.4); PLATELET COUNT 141 X10'3 (140-440); RED BLOOD COUNT 3.01 X10'6 (4.20-5.60); RED CELL DISTRIBUTION WIDTH 24.2 % (11.5-14.5); WHITE BLOOD COUNT 3.8 X10'3 (4.5-11.0)
[2021-04-07] MEDS ORDERED: LIDOcaine 1%/PF 5ML 10 MG/ML VIAL ONE (12:59)
[2021-04-07] MEDS ORDERED: fentaNYL/PF 50MCG/1 ML 2ML syringe ONE ×2 (13:00→15:08)
[2021-04-07] MEDS ORDERED: midazolam 1 mg/ML 2ml injection ONE ×3 (13:00→15:47)
[2021-04-07] MEDS ORDERED: heparin 1,000 UNITS/NS 500ml 500 ML ONE (14:45)
[2021-04-07] MEDS ORDERED: iohexol 300mg/ml 100ml inj. ONE ×3 (14:45→16:46)
--- NOTE | 2021-04-07 17:25 | NUR ---
pt returned from agio. angioseal to right groin without hematoma, with small pinpoint of drainage. per angio nurses, coils deployed to duodenal artery. surgery may be in pt's future. pt emotionally labile at baseline, reporting pain, breathing non labo Addendum: 04/07/21 at 1758 by Fatmata Dumont RN non labored, thearapeutic conversation effective and norco andministred. no s/sx acute distress. safety measuers in place.
[2021-04-07 18:24] LABS: HEMATOCRIT 25.9 % (35.0-45.0); HEMOGLOBIN 8.3 g/dl (12.0-16.0); MEAN CORPUSCULAR HEMOGLOBIN 27.1 PG (27.0-31.0); MEAN CORPUSCULAR VOLUME 84.7 FL (78-98); MEAN PLATELET VOLUME 7.3 FL (7.4-10.4); PLATELET COUNT 138 X10'3 (140-440); RED BLOOD COUNT 3.06 X10'6 (4.20-5.60); RED CELL DISTRIBUTION WIDTH 23.7 % (11.5-14.5); WHITE BLOOD COUNT 3.6 X10'3 (4.5-11.0)
--- NOTE | 2021-04-07 18:55 | NUR ---
Problems reprioritized. Patient report given, questions answered & plan of care reviewed with Donna RIVERO. pt supine, no bleeding at right groin noted.
--- NOTE | 2021-04-07 19:03 | NUR ---
Patient in room PCU 3028. I have received report from Fatmata RIVERO and had the opportunity to ask questions and assume patient care.
--- NOTE | 2021-04-07 19:19 | NUR ---
Spoke with and he is very agitated and states, "The bleed is under the lap band and does not show on scans." Patients yelling at me and wants the doctor to be informed with this information and the would like to speak with the MD.
[2021-04-07] MEDS: insulin glargine (Lantus) pen - multi-dose SQ SCH (21:00)
[2021-04-07] MEDS: proCHLORperazine 10 MG/2 ml inj IV PRN (22:39)
[2021-04-08] MEDS: HYDROcodone/acetaminophen 10/325mg tab PO PRN ×4 (00:15→18:59)
[2021-04-08] MEDS: pantoprazole 40MG/NS 100ML BAG 100 ML IV SCH ×6 (01:03→23:53)
[2021-04-08 02:00] VITALS: BP 139/82
--- NOTE | 2021-04-08 02:07 | NUR ---
Page sent please call [phone]/Donna R/Humaira Morillo, dx: GI bleed. IR coiling done today, Still having black diarrhea stools, no labs done since 6pm and no labs ordered for am to check H/H. Would you like hemogram? Addendum: 04/08/21 at 0208 by Donna Thompson RN Hemogram ordered for now per
[2021-04-08 02:34] LABS: HEMOGLOBIN 7.7 g/dl (12.0-16.0); MEAN CORPUSCULAR HEMOGLOBIN 26.6 PG (27.0-31.0); MEAN CORPUSCULAR HGB CONC 32.1 g/dL (33.0-36.5); MEAN CORPUSCULAR VOLUME 82.7 FL (78-98); MEAN PLATELET VOLUME 7.2 FL (7.4-10.4); PLATELET COUNT 159 X10'3 (140-440); RED CELL DISTRIBUTION WIDTH 24.4 % (11.5-14.5); WHITE BLOOD COUNT 4.1 X10'3 (4.5-11.0)
[2021-04-08] MEDS: morphine 2 MG/ML inj. syringe IV PRN ×3 (02:39→22:07)
--- NOTE | 2021-04-08 06:30 | NUR ---
Problems reprioritized. Patient report given, questions answered & plan of care reviewed with Fatmata RIVERO.
--- NOTE | 2021-04-08 07:18 | NUR ---
Patient in room PCU 3028. I have received report from Donna RIVERO and had the opportunity to ask questions and assume patient care. Pt right groin assessed, 2 inch diameter drainage noted. area previously circled by night nurse. no hematoma noted. mild pain at site. therapeutic conversation employed to ease pt's anxiety--effective. NS at 75%. safety education completed. bed alarm armed. no s/sx acute distress. abd soft.
[2021-04-08 07:30] VITALS: BP 151/72
[2021-04-08] MEDS: K and/or MAG REPLACEMENT MC SCH ×2 (08:00→19:01)
[2021-04-08] MEDS: docusate sod 100mg capsule PO SCH ×2 (08:00→19:00)
[2021-04-08 08:30] LABS: BASOPHILS % (AUTO) 0.2 % (0-1); EOSINOPHILS # (AUTO) 0.1 X10'3 (0-0.9); EOSINOPHILS % (AUTO) 2.8 % (0-6); HEMATOCRIT 22.8 % (35.0-45.0); HEMOGLOBIN 7.3 g/dl (12.0-16.0); LYMPHOCYTES # (AUTO) 0.5 X10'3 (1.1-4.8); LYMPHOCYTES % (AUTO) 14.5 % (21-51); MEAN CORPUSCULAR VOLUME 84.3 FL (78-98); MEAN PLATELET VOLUME 7.5 FL (7.4-10.4); MONOCYTES # (AUTO) 0.4 X10'3 (0-0.9); MONOCYTES % (AUTO) 13.2 % (2-12); NEUTROPHILS # (AUTO) 2.2 X10'3 (1.8-7.7); NEUTROPHILS % (AUTO) 69.3 % (42-75); PLATELET COUNT 151 X10'3 (140-440); RED BLOOD COUNT 2.71 X10'6 (4.20-5.60); RED CELL DISTRIBUTION WIDTH 24.1 % (11.5-14.5); WHITE BLOOD COUNT 3.1 X10'3 (4.5-11.0)
[2021-04-08] MEDS: ondansetron/PF 4mg/2ml inj IV PRN ×2 (08:55→22:22)
[2021-04-08 08:56] LABS: ALANINE AMINOTRANSFERASE 44 U/L (12-78); ALBUMIN 2.1 G/DL (3.4-5.0); ALBUMIN/GLOBULIN RATIO 0.7 (1.1-1.5); ALKALINE PHOSPHATASE 57 IU/L (46-116); ANION GAP 12 (8-16); ASPARTATE AMINO TRANSFERASE 33 U/L (10-37); BILIRUBIN,TOTAL 0.6 MG/DL (0.1-1.0); BLOOD UREA NITROGEN 11 MG/DL (7-18); BUN/CREATININE RATIO 16.4 (6.6-38.0); CALCIUM 7.3 MG/DL (8.5-10.1); CHLORIDE 108 MMOL/L (99-107); CREATININE 0.67 MG/DL (0.40-0.90); GLUCOSE 83 MG/DL (70-104); POTASSIUM 3.4 MMOL/L (3.5-5.1); SODIUM 142 MMOL/L (135-145); TOTAL CARBON DIOXIDE 22.1 MMOL/L (24-32); eGFR 90 ML/MIN
[2021-04-08] MEDS: thiamine 100mg tablet PO SCH (08:56)
[2021-04-08] MEDS: multivitamins, therapeutics tablet PO SCH (08:56)
[2021-04-08] MEDS: folic acid 1mg tablet PO SCH (08:56)
[2021-04-08] MEDS: normal saline 1000ml 1,000 ML IV SCH ×2 (09:42→23:59)
[2021-04-08 11:00] VITALS: BP 118/53
[2021-04-08] MEDS: LORazepam 0.5 MG tablet PO PRN ×2 (11:45→18:59)
[2021-04-08] MEDS ORDERED: magnesium Cl slow-release 64mg tablet PO PRN (14:50)
[2021-04-08] MEDS ORDERED: magnesium 4gm in 100ml NS 100 ML IV PRN (14:50)
[2021-04-08] MEDS ORDERED: potassium Cl 20 mEq SR tablet PO PRN ×2 (14:50)
[2021-04-08] MEDS ORDERED: potassium Cl 40MEQ/1/2NS 520ml 520 ML IV PRN (14:50)
[2021-04-08 15:00] VITALS: BP 130/78
--- NOTE | 2021-04-08 17:29 | NUR ---
ambulation: pt ambulated 400 ft x3 this shift. no sob while walking. gait steady.
[2021-04-08 18:00] VITALS: BP 133/74
--- NOTE | 2021-04-08 18:14 | NUR ---
Patient in room [facility] 3028. I have received report from OSITO RIVERO and had the opportunity to ask questions and assume patient care. Addendum: 04/08/21 at 1821 by Cecile Barron RN Patient in room [place] [address]. I have received report from JAMAAL RIVERO and had the opportunity to ask questions and assume patient care.
--- NOTE | 2021-04-08 18:50 | NUR ---
Problems reprioritized. Patient report given, questions answered & plan of care reviewed with Cecile RIVERO. Pt up ambulating to br. abd soft. no s/sx abd bleeding or acute distress
[2021-04-08] MEDS: insulin glargine (Lantus) pen - multi-dose SQ SCH (21:00)
[2021-04-08 22:00] VITALS: BP 123/59
[2021-04-09] VITALS (8 sets, daily range): BP systolic 132–159; BP diastolic 58–87
[2021-04-09] MEDS: LORazepam 0.5 MG tablet PO PRN ×2 (00:07→19:49)
[2021-04-09] MEDS: HYDROcodone/acetaminophen 10/325mg tab PO PRN ×2 (01:05→08:59)
[2021-04-09] MEDS: pantoprazole 40MG/NS 100ML BAG 100 ML IV SCH ×2 (06:09→11:13)
--- NOTE | 2021-04-09 06:53 | NUR ---
Patient in room PCU 3028. I have received report from Cecile RIVERO and had the opportunity to ask questions and assume patient care.
[2021-04-09 07:15] LABS: BASOPHILS % (AUTO) 0.3 % (0-1); EOSINOPHILS # (AUTO) 0.1 X10'3 (0-0.9); EOSINOPHILS % (AUTO) 4.3 % (0-6); HEMATOCRIT 23.6 % (35.0-45.0); HEMOGLOBIN 7.3 g/dl (12.0-16.0); LYMPHOCYTES # (AUTO) 0.8 X10'3 (1.1-4.8); LYMPHOCYTES % (AUTO) 24.9 % (21-51); MEAN CORPUSCULAR HEMOGLOBIN 26.3 PG (27.0-31.0); MEAN PLATELET VOLUME 7.7 FL (7.4-10.4); MONOCYTES # (AUTO) 0.5 X10'3 (0-0.9); MONOCYTES % (AUTO) 14.7 % (2-12); NEUTROPHILS # (AUTO) 1.7 X10'3 (1.8-7.7); NEUTROPHILS % (AUTO) 55.8 % (42-75); PLATELET COUNT 185 X10'3 (140-440); RED BLOOD COUNT 2.78 X10'6 (4.20-5.60); RED CELL DISTRIBUTION WIDTH 24.5 % (11.5-14.5); WHITE BLOOD COUNT 3.1 X10'3 (4.5-11.0)
[2021-04-09 07:27] LABS: BILIRUBIN,TOTAL 0.5 MG/DL (0.1-1.0); BLOOD UREA NITROGEN 6 MG/DL (7-18); BUN/CREATININE RATIO 8.8 (6.6-38.0); CHLORIDE 113 MMOL/L (99-107); CREATININE 0.68 MG/DL (0.40-0.90); GLUCOSE 86 MG/DL (70-104); POTASSIUM 3.7 MMOL/L (3.5-5.1); SODIUM 146 MMOL/L (135-145); eGFR 89 ML/MIN
[2021-04-09 07:34] LABS: ALANINE AMINOTRANSFERASE 37 U/L (12-78); ALBUMIN 2.3 G/DL (3.4-5.0); ALBUMIN/GLOBULIN RATIO 0.8 (1.1-1.5); ALKALINE PHOSPHATASE 56 IU/L (46-116); ANION GAP 9 (8-16); ASPARTATE AMINO TRANSFERASE 27 U/L (10-37); CALCIUM 7.7 MG/DL (8.5-10.1); MAGNESIUM 1.9 MG/DL (1.5-2.4); TOTAL CARBON DIOXIDE 24.1 MMOL/L (24-32); TOTAL PROTEIN 5.1 G/DL (6.4-8.2)
[2021-04-09] MEDS: docusate sod 100mg capsule PO SCH (08:00)
[2021-04-09] MEDS: K and/or MAG REPLACEMENT MC SCH ×2 (08:00→20:00)
[2021-04-09] MEDS: thiamine 100mg tablet PO SCH (08:59)
[2021-04-09] MEDS: folic acid 1mg tablet PO SCH (08:59)
[2021-04-09] MEDS: multivitamins, therapeutics tablet PO SCH (08:59)
[2021-04-09] MEDS ORDERED: THIA50TA10 PO (11:01)
[2021-04-09] MEDS ORDERED: MULT-25 PO (11:01)
[2021-04-09] MEDS ORDERED: HYDR-3965 PO (11:01)
[2021-04-09] MEDS ORDERED: PANT40TA54 PO (11:01)
[2021-04-09 11:08] LABS: HEMATOCRIT 22.6 % (35.0-45.0); MEAN CORPUSCULAR HEMOGLOBIN 26.1 PG (27.0-31.0); MEAN CORPUSCULAR HGB CONC 31.2 g/dL (33.0-36.5); MEAN CORPUSCULAR VOLUME 83.7 FL (78-98); MEAN PLATELET VOLUME 7.2 FL (7.4-10.4); PLATELET COUNT 187 X10'3 (140-440); RED CELL DISTRIBUTION WIDTH 23.8 % (11.5-14.5); WHITE BLOOD COUNT 2.9 X10'3 (4.5-11.0)
--- NOTE | 2021-04-09 11:19 | NUR ---
Paged Dr. Leggett regarding critical H&H, and discharge PAGER ID: [phone] MESSAGE: [phone] Zara Savage. Hgb 7.0/Hct 22.6. Patient doesn't want to be discharged today, she wasn't to speak with you. PCU Afsaneh
[2021-04-09 12:15] LABS: ANISOCYTOSIS 3+; ELLIPTOCYTES 1+; HYPOCHROMASIA 1+; PLATELET ESTIMATE NORMAL; POLYCHROMASIA 2+; SCHISTOCYTES FEW
[2021-04-09] MEDS: normal saline 1000ml 1,000 ML IV SCH (12:22)
[2021-04-09] MEDS: HYDROcodone/acetaminophen 5mg/325mg tablet PO PRN ×2 (15:25→21:38)
[2021-04-09] MEDS ORDERED: iohexol 350MG/ML 100ml bottle IV ONE (16:38)
--- NOTE | 2021-04-09 18:12 | NUR ---
Problems reprioritized. Patient report given, questions answered & plan of care reviewed with Martha/Jillian RIVERO. Patient stable at transfer of care.
[2021-04-09] MEDS: pantoprazole 40mg Tablet.DR PO SCH (19:49)
[2021-04-09 20:13] LABS: HEMOGLOBIN 8.9 g/dl (12.0-16.0); MEAN CORPUSCULAR HEMOGLOBIN 26.6 PG (27.0-31.0); MEAN CORPUSCULAR HGB CONC 31.7 g/dL (33.0-36.5); MEAN CORPUSCULAR VOLUME 83.8 FL (78-98); MEAN PLATELET VOLUME 7.5 FL (7.4-10.4); PLATELET COUNT 246 X10'3 (140-440); RED BLOOD COUNT 3.34 X10'6 (4.20-5.60); RED CELL DISTRIBUTION WIDTH 22.4 % (11.5-14.5); WHITE BLOOD COUNT 3.9 X10'3 (4.5-11.0)
[2021-04-09] MEDS ORDERED: aminophylline 250mg/10ml inj. IV PRN (23:20)
[2021-04-09] MEDS ORDERED: nitroGLYCERIN 0.4mg SUBLingual tab SL PRN (23:20)
[2021-04-09] MEDS ORDERED: regadenoson 0.4mg/5ml syringe IV PRN (23:20)
[2021-04-09] MEDS ORDERED: metoprolol tartrate 1mg/ml inj IV PRN (23:20)
[2021-04-10] VITALS (11 sets, daily range): BP systolic 128–179; BP diastolic 56–91
--- NOTE | 2021-04-10 00:50 | NUR ---
reviewed and edited SRN assessment.
--- NOTE | 2021-04-10 02:15 | NUR ---
Madi hemogram into blue top vial and sent to lab.
[2021-04-10] MEDS: LORazepam 0.5 MG tablet PO PRN (02:44)
[2021-04-10] MEDS: HYDROcodone/acetaminophen 5mg/325mg tablet PO PRN ×2 (03:17→14:44)
--- NOTE | 2021-04-10 03:17 | NUR ---
Lab called to state that I needed to use purple tube for hemogram. tried to draw from patient but it coagulated in tube. notified Lab to ask for respite care provider to assist, as patient is being uncooperative and refusing to let me try again.
[2021-04-10] MEDS: ondansetron/PF 4mg/2ml inj IV PRN ×2 (05:37→14:47)
[2021-04-10 05:50] LABS: BASOPHILS % (AUTO) 0.5 % (0-1); EOSINOPHILS # (AUTO) 0.1 X10'3 (0-0.9); EOSINOPHILS % (AUTO) 4.1 % (0-6); HEMATOCRIT 26.7 % (35.0-45.0); HEMOGLOBIN 8.6 g/dl (12.0-16.0); LYMPHOCYTES # (AUTO) 0.7 X10'3 (1.1-4.8); LYMPHOCYTES % (AUTO) 20.4 % (21-51); MEAN CORPUSCULAR HEMOGLOBIN 26.7 PG (27.0-31.0); MEAN CORPUSCULAR HGB CONC 32.1 g/dL (33.0-36.5); MEAN CORPUSCULAR VOLUME 83.4 FL (78-98); MEAN PLATELET VOLUME 7.9 FL (7.4-10.4); MONOCYTES # (AUTO) 0.5 X10'3 (0-0.9); MONOCYTES % (AUTO) 13.4 % (2-12); NEUTROPHILS # (AUTO) 2.1 X10'3 (1.8-7.7); NEUTROPHILS % (AUTO) 61.6 % (42-75); PLATELET COUNT 249 X10'3 (140-440); RED CELL DISTRIBUTION WIDTH 22.7 % (11.5-14.5); WHITE BLOOD COUNT 3.4 X10'3 (4.5-11.0)
[2021-04-10 06:04] LABS: ALANINE AMINOTRANSFERASE 42 U/L (12-78); ALBUMIN 2.5 G/DL (3.4-5.0); ALBUMIN/GLOBULIN RATIO 0.8 (1.1-1.5); ALKALINE PHOSPHATASE 60 IU/L (46-116); ANION GAP 10 (8-16); ASPARTATE AMINO TRANSFERASE 31 U/L (10-37); BILIRUBIN,TOTAL 0.5 MG/DL (0.1-1.0); BLOOD UREA NITROGEN 5 MG/DL (7-18); BUN/CREATININE RATIO 7.9 (6.6-38.0); CALCIUM 7.8 MG/DL (8.5-10.1); CHLORIDE 109 MMOL/L (99-107); CREATININE 0.63 MG/DL (0.40-0.90); GLUCOSE 92 MG/DL (70-104); POTASSIUM 3.4 MMOL/L (3.5-5.1); SODIUM 142 MMOL/L (135-145); TOTAL CARBON DIOXIDE 22.8 MMOL/L (24-32); TOTAL PROTEIN 5.7 G/DL (6.4-8.2); eGFR > 90 ML/MIN
[2021-04-10 06:08] LABS: MAGNESIUM 1.8 MG/DL (1.5-2.4); TROPONIN I 0.12 NG/ML (0.0-0.05)
--- NOTE | 2021-04-10 06:38 | NUR ---
Problems reprioritized. Patient report given, questions answered & plan of care reviewed with
--- NOTE | 2021-04-10 06:52 | NUR ---
Patient in room PCU 3011. I have received report from MAT BURRIS and had the opportunity to ask questions and assume patient care.
[2021-04-10] MEDS: multivitamins, therapeutics tablet PO SCH (08:00)
[2021-04-10] MEDS: folic acid 1mg tablet PO SCH (08:00)
[2021-04-10] MEDS: K and/or MAG REPLACEMENT MC SCH (08:00)
[2021-04-10] MEDS: pantoprazole 40mg Tablet.DR PO SCH (08:00)
[2021-04-10] MEDS: thiamine 100mg tablet PO SCH (08:00)
[2021-04-10] MEDS ORDERED: CefTRIAXone/D5W-Rocephin 1gm 50 ML IV SCH (09:45)
[2021-04-10 10:04] LABS: HEMATOCRIT 27.8 % (35.0-45.0); HEMOGLOBIN 8.9 g/dl (12.0-16.0); MEAN CORPUSCULAR HEMOGLOBIN 26.9 PG (27.0-31.0); MEAN CORPUSCULAR HGB CONC 31.9 g/dL (33.0-36.5); MEAN CORPUSCULAR VOLUME 84.4 FL (78-98); MEAN PLATELET VOLUME 7.8 FL (7.4-10.4); PLATELET COUNT 260 X10'3 (140-440); RED BLOOD COUNT 3.29 X10'6 (4.20-5.60); RED CELL DISTRIBUTION WIDTH 22.4 % (11.5-14.5); WHITE BLOOD COUNT 3.4 X10'3 (4.5-11.0)
--- NOTE | 2021-04-10 10:14 | NUR ---
Reassessment: Pt advanced to Regular diet 04/08 w/ mostly 100% intake of meals since then. LBM 04/09. No nutrition interventions implemented at this time, will continue to monitor. Recs: 1. Continue Regular diet as tolerated 2. Bowel care per rx 3. Weekly wts Addendum: 04/10/21 at [address] Amended: Links added.
--- NOTE | 2021-04-10 12:13 | NUR ---
Troponin drawn per protocol to determine downwards trend for Lexiscan protocol. Results show stable trop but no downward trend. Betsey and Dylan consulted with findings, with orders to continue test.
[2021-04-10 14:01] LABS: HEMATOCRIT 27.4 % (35.0-45.0); HEMOGLOBIN 8.8 g/dl (12.0-16.0); MEAN CORPUSCULAR HEMOGLOBIN 26.9 PG (27.0-31.0); MEAN CORPUSCULAR HGB CONC 32.2 g/dL (33.0-36.5); MEAN CORPUSCULAR VOLUME 83.5 FL (78-98); MEAN PLATELET VOLUME 7.2 FL (7.4-10.4); PLATELET COUNT 273 X10'3 (140-440); RED BLOOD COUNT 3.28 X10'6 (4.20-5.60); RED CELL DISTRIBUTION WIDTH 22.7 % (11.5-14.5); WHITE BLOOD COUNT 3.5 X10'3 (4.5-11.0)
[2021-04-10] MEDS ORDERED: LISI10TA27 PO (15:14)
[2021-04-10] MEDS ORDERED: CARV3.12 PO (15:14)
[2021-04-10] MEDS ORDERED: carVEDilol 3.125mg tablet PO SCH (15:15)
[2021-04-10] MEDS ORDERED: CEFD300C3 PO (15:15)
[2021-04-10] MEDS ORDERED: lisinopril 10 MG tablet PO SCH (15:15)
[2021-04-10] MEDS ORDERED: NITR0.4T51 SL (15:17)
[2021-04-10] MEDS ORDERED: ASCO500C6 PO (15:29)
[2021-04-10] MEDS ORDERED: FERR325T28 PO (15:29)
--- NOTE | 2021-04-10 18:15 | NUR ---
PATIENT STABLE AND APPROPRIATE FOR DISCHARGE, IVS TAKEN OUT, TELE REMOVED, EDUCATION GIVEN, NEW PRESCRIPTIONS E-SCRIPTED TO PREFERRED PHARMACY, ALL BELONGINGS SENT WITH PATIENT, PATIENT TAKEN TO LOBBY BY WHEELCHAIR TO AN AWAITING CAR WHERE WILL TAKE PATIENT HOME
== END 2021-04-10 18:15 | disposition home or self-care (01) | DRG 229 ==
LOC: ER 13:07 → ED HOLD 18:36 → EDBEDREQ 04-03 04:32 → PCU 3S 04-03 21:20
PROVIDERS: ADMIT Family Medicine; ATTEND Family Medicine
PROC: BW211ZZ Computerized Tomography (CT Scan) of Abdomen and Pelvis using Low Osmolar Contrast (ICD-10-PCS; 2021-04-02)
PROC: 30233N1 Transfusion of Nonautologous Red Blood Cells into Peripheral Vein, Percutaneous Approach (ICD-10-PCS; 2021-04-02)
PROC: 0DB78ZX Excision of Stomach, Pylorus, Via Natural or Artificial Opening Endoscopic, Diagnostic (ICD-10-PCS; principal; 2021-04-04)
PROC: 0W3P8ZZ Control Bleeding in Gastrointestinal Tract, Via Natural or Artificial Opening Endoscopic (ICD-10-PCS; 2021-04-04)
PROC: 04L33DZ Occlusion of Hepatic Artery with Intraluminal Device, Percutaneous Approach (ICD-10-PCS; 2021-04-08)
PROC: B4121ZZ Fluoroscopy of Hepatic Artery using Low Osmolar Contrast (ICD-10-PCS; 2021-04-08)
PROC: B4141ZZ Fluoroscopy of Superior Mesenteric Artery using Low Osmolar Contrast (ICD-10-PCS; 2021-04-08)
PROC: B41B1ZZ Fluoroscopy of Other Intra-Abdominal Arteries using Low Osmolar Contrast (ICD-10-PCS; 2021-04-08)
PROC: B32T1ZZ Computerized Tomography (CT Scan) of Left Pulmonary Artery using Low Osmolar Contrast (ICD-10-PCS; 2021-04-09)
PROC: B3201ZZ Computerized Tomography (CT Scan) of Thoracic Aorta using Low Osmolar Contrast (ICD-10-PCS; 2021-04-09)
PROC: B32S1ZZ Computerized Tomography (CT Scan) of Right Pulmonary Artery using Low Osmolar Contrast (ICD-10-PCS; 2021-04-09)
PROC: 4A02XM4 Measurement of Cardiac Total Activity, External Approach (ICD-10-PCS; 2021-04-10)
PROC: 3E073KZ Introduction of Other Diagnostic Substance into Coronary Artery, Percutaneous Approach (ICD-10-PCS; 2021-04-10)
DX: K26.4 Chronic or unspecified duodenal ulcer with hemorrhage (principal); I21.A1 Myocardial infarction type 2; D64.9 Anemia, unspecified; E87.6 Hypokalemia; F11.10 Opioid abuse, uncomplicated; I10 Essential (primary) hypertension; F17.200 Nicotine dependence, unspecified, uncomplicated; F41.9 Anxiety disorder, unspecified; K21.9 Gastro-esophageal reflux disease without esophagitis; Y90.6 Blood alcohol level of 120-199 mg/100 ml; K29.70 Gastritis, unspecified, without bleeding; F32.A Depression, unspecified; F10.20 Alcohol dependence, uncomplicated; Z20.822 Contact with and (suspected) exposure to COVID-19; I48.0 Paroxysmal atrial fibrillation; T45.516A Underdosing of anticoagulants, initial encounter; Y92.89 Other specified places as the place of occurrence of the external cause; Z79.01 Long term (current) use of anticoagulants; Z86.711 Personal history of pulmonary embolism; Z71.6 Tobacco abuse counseling; Z98.84 Bariatric surgery status; Z98.51 Tubal ligation status
CPT/HCPCS: 36245; 36415; 36430; 37244; 43227; 43236; 43239; 43255; 71275; 74177; 75726; 76937; 78452; 80053; 80061; 81001; 81025; 82150; 82272; 82948; 83036; 83690; 83735; 84100; 84484; 85008; 85025; 85027; 85610; 85730; 86870; 86885; 86900; 86901; 86902; 86905; 86922; 87081; 87088; 87635; 92508; 92616; 93005; 93017; 93306; 96361; 96365; 96366; 96368; 96375; 97116; 97161; 97530; 99152; 99153; 99285; A4620; A6213; A9500; C1760; C1769; C1887; C1894; C9113; G0269; G0378; J0171; J0780; J1200; J1644; J1815; J2060; J2250; J2270; J2354; J2405; J2785; J3010; J3480; J7030; J7040; J7042; P9016; Q9967